=== PATIENT | male | born 1995 | race Caucasian/White ===

== ENCOUNTER 2021-09-27 18:44 | Emergency (ER) | payer OTHER ==
[2021-09-27] MEDS ORDERED: Ondansetron 4 MG/2 ML SDV IVPUSH ONE (19:12)
[2021-09-27] MEDS ORDERED: Ketorolac 30 MG/ML SDV IVPUSH ONE (19:12)
[2021-09-27] MEDS ORDERED: Sodium Chloride 0.9% 1,000 ML IV ONE ×2 (19:12→20:17)
[2021-09-27] MEDS ORDERED: Ketorolac 30 MG/ML SDV IM ONE (19:13)
--- NOTE | 2021-09-27 19:13 | EDM.PDOC ---
ED HPI GENERAL MEDICAL PROBLEM - General Chief Complaint: Gastrointestinal Problem Stated Complaint: N/V Time Seen by Provider: 09/27/21 19:10 Source of Information: Reports: Patient History Limitations: Reports: No Limitations - History of Present Illness INITIAL COMMENTS - FREE TEXT/NARRATIVE: Miguel, 26-year-old male, presents with extreme nausea emesis and lower back pain that he states started after violent emesis occurring. States he has had maybe decreased fluid intake with definitive decrease in urine output this weekend. Is not an alcohol drinker with no recent behavior or risk pattern or food intake that would promote this. He is vaccinated x1 thus far for COVID-19 receiving his next immunization in the next week. He has had no exposures that he is aware of. Came on gradually and worsened presenting here with extreme nausea. Onset: Today, Sudden Duration: Hour(s): Location: Reports: Back Bilateral Lower Back Pain Score (Numeric/FACES): 8 - Related Data Allergies Allergy/AdvReac Type Severity Reaction Status Date / Time amoxicillin Allergy Other Verified 09/27/21 19:49 Home Meds: Home Meds valACYclovir HCl [valACYclovir] 1,000 mg PO ASDIRECTED 11/10/19 [History] Past Medical History - Past Health History Medical/Surgical History: Denies Medical/Surgical History - Infectious Disease History Infectious Disease History: Reports: Chicken Pox, Shingles Social & Family History - Family History Family Medical History: No Pertinent Family History - Caffeine Use Caffeine Use: Reports: Coffee ED ROS GENERAL - Review of Systems Review Of Systems: Comprehensive ROS is negative, except as noted in HPI. ED EXAM, GENERAL - Physical Exam Exam: See Below Free Text/Narrative:: Alert, oriented in mild nauseous distress. HEENT is negative discharge or deformity. PERRLA no icterus no injection. Neck soft supple no rigidity no lymphadenopathy. Thorax clear throughout no appreciated wheezes no crackles. Cardiac is regular with no appreciated murmur. Abdomen is soft bowel sounds are present no tenderness to palpation. There is no flank pain no percussive tenderness mild tenderness in the midline associated with the erector spinae muscle process no spinal process tenderness. He moves his extremities about with no difficulty. Reassessment after antiemetics is significantly improved receiving 60 mg of Toradol 30 IV 30 a.m. and a liter of fluid. His urine is very concentrated with mucus threads and states he is feeling much better after the first liter of fluid which time a second bag is hung it when he is able to finally provide a urine sample. It is very concentrated with mucus threads present. Course - Vital Signs Last Recorded V/S: Last Vital Signs Temp 97.4 F 09/27/21 19:00 Pulse 92 09/27/21 19:41 Resp 20 09/27/21 19:41 BP 104/51 L 09/27/21 19:41 Pulse Ox 100 09/27/21 19:41 - Orders/Labs/Meds Labs: Laboratory Tests 09/27/21 09/27/21 09/27/21 Range/Units 19:10 19:10 20:40 WBC 13.19 H (5.00-10.00) 10^3/uL RBC 5.89 (4.50-6.00) 10^6/uL Hgb 17.7 H (13.0-17.0) g/dL Hct 51.8 (40.0-52.0) % MCV 87.9 (82.0-92.0) fL MCH 30.1 (27.0-31.0) pg MCHC 34.2 (32.0-36.0) g/dL RDW 12.2 (11.5-14.5) % Plt Count 178 (150-400) 10^3/uL MPV 10.6 H (7.4-10.4) fL Add Manual Diff Yes Neutrophils % (Manual) 86 H (50-70) % Band Neutrophils % 2 L (4-12) % Lymphocytes % (Manual) 8 L (20-40) % Monocytes % (Manual) 3 (2-8) % Basophils % (Manual) 1 (0-1) % Platelet Estimate Adequate Sodium 140 (136-145) mmol/L Potassium 4.5 (3.5-5.1) mmol/L Chloride 103 (98-107) mmol/L Carbon Dioxide 23.9 (21.0-32.0) mmol/L Anion Gap 17.6 H (5-15) mmol/L BUN 19 H (7-18) mg/dL Creatinine 1.25 H (0.51-1.17) mg/dL Est Cr Clr Drug Dosing 78.24 mL/min Estimated GFR (MDRD) > 60 mL/min Glucose 137 (70-140) mg/dL Calcium 9.8 (8.7-10.3) mg/dL Total Bilirubin 0.8 (0.2-1.0) mg/dL AST 14 L (15-37) U/L ALT 21 (14-63) U/L Alkaline Phosphatase 84 (46-116) U/L Total Protein 8.9 H (6.4-8.2) g/dL Albumin 5.16 H (3.40-5.00) g/dL Specimen Type Urincc Urine Color Abril H (YELLOW) Urine Appearance Clear (CLEAR) Urine pH 5.5 (5.0-9.0) Ur Specific [place] >= 1.030 (1.005-1.030) Urine Protein 100 H (NEGATIVE) mg/dL Urine Glucose (UA) Negative (NEGATIVE) mg/dL Urine Ketones Trace H (NEGATIVE) mg/dL Urine Occult Blood Negative (NEGATIVE) Urine Nitrite Negative (NEGATIVE) Urine Bilirubin Moderate H (NEGATIVE) Urine Urobilinogen 0.2 (0.2-1.0) E.U./dL Ur Leukocyte Esterase Negative (NEGATIVE) Urine RBC Not seen (0-5) /HPF Urine WBC 5-10 H (0-5) /HPF Ur Epithelial Cells Not seen /LPF Urine Bacteria Moderate H (NONE TO FEW) /HPF Urine Mucus Many H (NEGATIVE) /LPF Meds: Medications Discontinued Medications Generic Name Dose Route Start Last Admin Trade Name Freq PRN Reason Stop Dose Admin Sodium Chloride 1,000 mls @ 999 mls/hr 09/27/21 19:12 09/27/21 19:17 Normal Saline IV 09/27/21 20:12 999 mls/hr .BOLUS ONE Administration Sodium Chloride 1,000 mls @ 999 mls/hr 09/27/21 20:17 09/27/21 20:23 Normal Saline IV 09/27/21 21:17 999 mls/hr .BOLUS ONE Administration Ketorolac Tromethamine 30 mg 09/27/21 19:12 09/27/21 19:24 Ketorolac 30 Mg/Ml Sdv IVPUSH 09/27/21 19:13 30 mg ONETIME ONE Administration Ketorolac Tromethamine 30 mg 09/27/21 19:13 09/27/21 19:24 Ketorolac 30 Mg/Ml Sdv IM 09/27/21 19:14 30 mg ONETIME ONE Administration Ondansetron HCl 8 mg 09/27/21 19:12 09/27/21 19:18 Ondansetron 4 Mg/2 Ml Sdv IVPUSH 09/27/21 19:13 8 mg ONETIME ONE Administration Departure - Departure Time of Disposition: 21:52 Disposition: Home, Self-Care 01 Condition: Good Clinical Impression: Elevated serum creatinine, Urine abnormality Nausea & vomiting Qualifiers: Vomiting type: unspecified Vomiting Intractability: non-intractable Qualified Code(s): R11.2 - Nausea with vomiting, unspecified Low back pain Qualifiers: Chronicity: acute Back pain laterality: bilateral Sciatica presence: without sciatica Qualified Code(s): M54.50 - Low back pain, unspecified - Discharge Information *PRESCRIPTION DRUG MONITORING PROGRAM REVIEWED*: Not Applicable *COPY OF PRESCRIPTION DRUG MONITORING REPORT IN PATIENT M[place]: Not Applicable Instructions: Acute Back Pain, Adult, Nausea and Vomiting, Adult Referrals: PCP,Unknown [Primary Care Provider] - Forms: ED Department Discharge Additional Instructions: You need to go home, rest, applying ice or heat to the lower back area where you seem to have a muscular strain. You need to push fluids as you showed mild evidence of kidney dysfunction. Predominantly water but you may use sports drinks Gatorade Powerade as well. Diet as tolerated. Do not drink/eat in excess to avoid further nausea and or vomiting. Follow-up with your clinic in the next week for recheck if this does not completely resolve in the next 24 to 48 hours. Sepsis Event Note (ED) - Focused Exam Vital Signs: Vital Signs Temp Pulse Resp BP Pulse Ox 09/27/21 19:41 92 20 104/51 L 100 09/27/21 19:00 97.4 F 100 20 116/71 99 - Problem List & Annotations (1) Nausea & vomiting SNOMED Code(s): 72838063 Code(s): R11.2 - NAUSEA WITH VOMITING, UNSPECIFIED Status: Acute Current Visit: Yes Qualifiers: Vomiting type: unspecified Vomiting Intractability: non-intractable Qualified Code(s): R11.2 - Nausea with vomiting, unspecified (2) Low back pain SNOMED Code(s): 009835302 Code(s): M54.50 - LOW BACK PAIN, UNSPECIFIED Status: Acute Priority: High Current Visit: Yes Qualifiers: Chronicity: acute Back pain laterality: bilateral Sciatica presence: without sciatica Qualified Code(s): M54.50 - Low back pain, unspecified (3) Elevated serum creatinine SNOMED Code(s): 468623660 Code(s): R79.89 - OTHER SPECIFIED ABNORMAL FINDINGS OF BLOOD CHEMISTRY Status: Acute Priority: High Current Visit: Yes (4) Urine abnormality SNOMED Code(s): 710978269 Code(s): R82.90 - UNSPECIFIED ABNORMAL FINDINGS IN URINE Status: Acute Priority: High Current Visit: Yes - Problem List Review Problem List Initiated/Reviewed/Updated: Yes - Assessment/Plan Plan: You need to go home, rest, applying ice or heat to the lower back area where you seem to have a muscular strain. You need to push fluids as you showed mild evidence of kidney dysfunction. Predominantly water but you may use sports drinks Gatorade Powerade as well. Diet as tolerated. Do not drink/eat in excess to avoid further nausea and or vomiting. Follow-up with your clinic in the next week for recheck if this does not completely resolve in the next 24 to 48 hours.
[2021-09-27 19:42] LABS: ANION GAP 17.6 mmol/L (5-15); CHLORIDE,CL 103 mmol/L (98-107); SODIUM,NA 140 mmol/L (136-145)
[2021-09-27 19:43] VITALS: BP 104/51; PULSE 92
== END 2021-09-27 22:15 | disposition home or self-care (01) ==
LOC: KA.ED 18:44
DX: R11.2 Nausea with vomiting, unspecified (principal); M54.50 Low back pain, unspecified; R74.8 Abnormal levels of other serum enzymes; R82.90 Unspecified abnormal findings in urine; Z88.0 Allergy status to penicillin
CPT/HCPCS: 36415; 80053; 81001; 85025; 96372; 96374; 96375; 99284; 99284-25; J1885; J2405; J7030